=== PATIENT | male | born 1965 | race African-American/Black ===

== ENCOUNTER 2016-11-21 13:26 | Inpatient (IN) | payer OTHER ==
[~2016-11-21] VITALS: Ht 193 cm; Wt 108.9 kg
[~2016-11-21 13:26] MED LIST: HYDR25TA4 PO; LISI-603 PO; QUET25TA PO
[2016-11-21] MEDS ORDERED: CEFTRIAXONE 1 G in IV D5W 50 ML IV ONE (14:00)
[2016-11-21] MEDS ORDERED: VANCOMYCIN 1 GM in IV D5W 250 ML IV SCH (14:00)
[2016-11-21] MEDS ORDERED: MORPHINE SULFATE INJ 2 MG/ML DISP.SYRIN IV ONE (14:00)
[2016-11-21] MEDS ORDERED: ONDANSETRON HCL/PF 4 MG/2 ML VIAL IV ONE (14:00)
[2016-11-21] MEDS ORDERED: MORPHINE SULFATE INJ 4 MG/ML DISP.SYRIN ONE (14:06)
[2016-11-21] MEDS ORDERED: IV SET PRIMARY PUMP SET 1 EA INFUS.SET MC ONE ×2 (14:06→17:56)
[2016-11-21] MEDS ORDERED: CEFTRIAXONE 1GM BAG (ER ONLY) 50 ML IV ONE (14:06)
[2016-11-21] MEDS ORDERED: ONDANSETRON HCL/PF 4 MG/2 ML VIAL ONE (14:06)
[2016-11-21 14:16] LABS: BASOPHILS % (AUTO) 0.1 % (0.0-2.0); DIFF TOTAL % 100 %; EOSINOPHILS % (AUTO) 0.3 % (0.0-6.0); HEMATOCRIT 45 % (39-51); HEMOGLOBIN 14.7 g/dL (13.5-17.5); LYMPHOCYTES # (AUTO) 1.1 /CMM (0.8-4.8); LYMPHOCYTES % (AUTO) 10.2 % (20.0-44.0); MEAN CORPUSCULAR HEMOGLOBIN 27 PG (26.0-33.0); MEAN CORPUSCULAR HGB CONC 33 g/dl (31.0-36.0); MEAN CORPUSCULAR VOLUME 81 fL (80-96); MONOCYTES # (AUTO) 1.2 /CMM (0.1-1.30); MONOCYTES % (AUTO) 10.8 % (2.0-12.0); NEUTROPHILS # (AUTO) 8.5 /CMM (1.8-8.9); NEUTROPHILS % (AUTO) 78.6 % (43.0-81.0); PLATELET COUNT (AUTO) 215 /CMM (150-450); RED BLOOD CELL COUNT(AUTO) 5.56 MIL/uL (4.5-6.0); WHITE BLOOD COUNT (AUTO) 10.8 K/uL (4.3-11.0)
[2016-11-21 14:24] LABS: CALCIUM, SERUM 8.5 mg/dL (8.5-10.1); CREATININE 1.2 mg/dL (0.6-1.3)
[2016-11-21 14:33] LABS: LACTIC ACID 1.6 mmol/L (0.4-2.0)
[2016-11-21] MEDS ORDERED: IOHEXOL-300 100 ML VIAL IV ONE (14:44)
[2016-11-21 14:52] LABS: ALBUMIN 2.7 g/dL (3.4-5.0); BILIRUBIN,DIRECT 0.7 mg/dL (0.0-0.2); BILIRUBIN,TOTAL 1.6 mg/dL (0.2-1.0); INDIRECT BILIRUBIN 0.9 mg/dL (0.0-1.1); TOTAL PROTEIN, SERUM 7.4 g/dL (6.4-8.2)
[2016-11-21] MEDS ORDERED: IV NS 0.9% 1,000 ML ONE (15:00)
[2016-11-21] MEDS ORDERED: IV NS 0.9% 1,000 ML BAG IV ONE (15:00)
[2016-11-21] MEDS ORDERED: IV NS 0.9% 1,000 ML IV PRN (16:08)
[2016-11-21] MEDS ORDERED: ZOLPIDEM TARTRATE 5 MG TABLET PO PRN (16:30)
[2016-11-21] MEDS ORDERED: MAGNESIUM HYDROXIDE 30 ML UDC PO PRN (16:30)
[2016-11-21] MEDS ORDERED: MAG HYDROX/AL HYDROX/SIMETH 30 ML UDC PO PRN (16:30)
[2016-11-21] MEDS ORDERED: ONDANSETRON HCL/PF 4 MG/2 ML VIAL IVP PRN (16:30)
[2016-11-21] MEDS ORDERED: ACETAMINOPHEN 325 MG TABLET PO PRN (16:30)
[2016-11-21] MEDS ORDERED: Z GUARD REMEDY 2 OZ OINT TP PRN (16:30)
[2016-11-21 17:30] VITALS: BP 168/100
[2016-11-21] MEDS: MORPHINE SULFATE INJ 2 MG/ML DISP.SYRIN IV PRN (18:00)
[2016-11-21] MEDS: ENOXAPARIN SODIUM 40 MG/0.4 ML DISP.SYRIN SQ SCH (18:11)
[2016-11-21 20:00] VITALS: BP 145/95
[2016-11-21] MEDS ORDERED: SECONDARY IV SET 1 EA INFUS.SET MC ONE (20:11)
[2016-11-21] MEDS: CEFAZOLIN 1 GM in IV NS 0.9% 50 ML IV SCH (20:16)
[2016-11-21] MEDS: POTASSIUM CHLORIDE 20 MEQ TAB.PRT.SR PO SCH ×3 (20:16→22:42)
[2016-11-22 00:55] VITALS: BP 116/89
[2016-11-22 02:00] VITALS: BP 122/78
[2016-11-22] MEDS: HYDROCODONE/APAP 5/325MG 1 EACH TABLET PO PRN ×2 (03:06→13:07)
[2016-11-22] MEDS: CEFAZOLIN 1 GM in IV NS 0.9% 50 ML IV SCH ×3 (04:12→22:08)
[2016-11-22 06:55] LABS: BASOPHILS % (AUTO) 0.2 % (0.0-2.0); DIFF TOTAL % 100 %; EOSINOPHILS # (AUTO) 0.1 /CMM (0.0-0.7); EOSINOPHILS % (AUTO) 0.6 % (0.0-6.0); HEMATOCRIT 42 % (39-51); HEMOGLOBIN 13.3 g/dL (13.5-17.5); LYMPHOCYTES # (AUTO) 1.5 /CMM (0.8-4.8); LYMPHOCYTES % (AUTO) 14.3 % (20.0-44.0); MEAN CORPUSCULAR HEMOGLOBIN 26 PG (26.0-33.0); MEAN CORPUSCULAR HGB CONC 32 g/dl (31.0-36.0); MEAN CORPUSCULAR VOLUME 82 fL (80-96); MONOCYTES # (AUTO) 1.4 /CMM (0.1-1.30); NEUTROPHILS # (AUTO) 7.2 /CMM (1.8-8.9); NEUTROPHILS % (AUTO) 70.9 % (43.0-81.0); PLATELET COUNT (AUTO) 212 /CMM (150-450); RED BLOOD CELL COUNT(AUTO) 5.05 MIL/uL (4.5-6.0); WHITE BLOOD COUNT (AUTO) 10.2 K/uL (4.3-11.0)
[2016-11-22 07:08] LABS: CALCIUM, SERUM 8.2 mg/dL (8.5-10.1); CREATININE 1.1 mg/dL (0.6-1.3); PHOSPHORUS 2.5 mg/dL (2.5-4.9); POTASSIUM 3.9 mmol/L (3.5-5.1)
[2016-11-22] MEDS ORDERED: IV SET PRIMARY PUMP SET 1 EA INFUS.SET MC ONE (07:27)
[2016-11-22 08:00] VITALS: BP 127/77
[2016-11-22] MEDS: PANTOPRAZOLE 40 MG TABLET.DR PO SCH (08:36)
[2016-11-22] MEDS: MORPHINE SULFATE INJ 2 MG/ML DISP.SYRIN IV PRN ×3 (08:37→22:08)
[2016-11-22] MEDS: LISINOPRIL (20MG) 20 MG TABLET PO SCH (08:38)
[2016-11-22 16:45] VITALS: BP 134/86
[2016-11-22] MEDS: ENOXAPARIN SODIUM 40 MG/0.4 ML DISP.SYRIN SQ SCH (17:30)
[2016-11-22] MEDS ORDERED: IV NS 0.9% 250 ML IV ONE (22:24)
[2016-11-23] MEDS: MORPHINE SULFATE INJ 2 MG/ML DISP.SYRIN IV PRN ×2 (03:41→07:44)
[2016-11-23] MEDS: CEFAZOLIN 1 GM in IV NS 0.9% 50 ML IV SCH (04:59)
[2016-11-23] MEDS: PANTOPRAZOLE 40 MG TABLET.DR PO SCH (07:44)
[2016-11-23] MEDS: LISINOPRIL (20MG) 20 MG TABLET PO SCH (07:45)
[2016-11-23 08:00] VITALS: BP 146/91
[2016-11-24] MEDS ORDERED: CARI350T PO (08:27)
[2016-11-24] MEDS ORDERED: HYDR-548 PO (08:27)
== END 2016-11-23 13:30 | disposition left against medical advice (07) | DRG 720 ==
LOC: ER 13:28 → MEDSG2 16:29
PROVIDERS: ADMIT Internal Medicine; ATTEND Internal Medicine
DX: A41.9 Sepsis, unspecified organism (principal); I10 Essential (primary) hypertension; L02.414 Cutaneous abscess of left upper limb; L03.114 Cellulitis of left upper limb; T63.301A Toxic effect of unspecified spider venom, accidental (unintentional), initial encounter; Y92.9 Unspecified place or not applicable
CPT/HCPCS: 36415; 73201-TC; 80048-TC; 80076-TC; 83605-TC; 83735-TC; 84100-TC; 85025-TC; 87040-TC; 87081-TC; A4216; A4217; A4606; A6253; A6402; A6403; J0690; J0696; J1650; J2270; J2405; J3370; J7030; J7050; J7060; Q9967; Z7610

== ENCOUNTER 2016-11-23 20:21 | Emergency (ER) | payer OTHER ==
[~2016-11-23 20:21] MED LIST changes: -HYDR25TA4 PO; -QUET25TA PO
[2016-11-24] MEDS ORDERED: HYDR-548 PO (08:27)
[2016-11-24] MEDS ORDERED: CARI350T PO (08:27)
== END 2016-11-23 21:12 | disposition left against medical advice (07) ==
LOC: ER 20:21
DX: Z53.21 Procedure and treatment not carried out due to patient leaving prior to being seen by health care provider (principal)

== ENCOUNTER 2016-11-23 21:56 | Emergency (ER) | payer OTHER ==
[~2016-11-23] VITALS: Ht 193 cm; Wt 108.9 kg
[2016-11-23 22:17] VITALS: BP 147/92
[2016-11-24] MEDS ORDERED: HYDR-548 PO (08:27)
[2016-11-24] MEDS ORDERED: CARI350T PO (08:27)
== END 2016-11-24 00:22 | disposition left against medical advice (07) ==
LOC: ER 21:56
DX: Z53.21 Procedure and treatment not carried out due to patient leaving prior to being seen by health care provider (principal)
CPT/HCPCS: A4606; Z7610

== ENCOUNTER 2016-11-24 06:55 | Inpatient (IN) | payer OTHER ==
[~2016-11-24] VITALS: Ht 193 cm; Wt 108.9 kg
[2016-11-24] MEDS ORDERED: IV NS 0.9% 500 ML IV ONE (07:25)
[2016-11-24] MEDS ORDERED: IV NS 0.9% 3,000 ML ONE (07:26)
[2016-11-24] MEDS ORDERED: IV SET PRIMARY PUMP SET 1 EA INFUS.SET MC ONE ×4 (07:26→20:55)
[2016-11-24] MEDS ORDERED: CEFAZOLIN 1 GM in IV D5W 50 ML IV ONE (07:30)
[2016-11-24] MEDS ORDERED: VANCOMYCIN 1 GM in IV D5W 250 ML IV ONE (07:30)
[2016-11-24] MEDS ORDERED: IV NS 0.9% 1,000 ML BAG IV ONE (07:30)
[2016-11-24 07:57] LABS: ANION GAP 10 (5-14); BASOPHILS % (AUTO) 0.4 % (0.0-2.0); CALCIUM, SERUM 8.9 mg/dL (8.5-10.1); CARBON DIOXIDE 29 mmol/L (21-32); CHLORIDE 104 mmol/L (98-107); CREATININE 1.1 mg/dL (0.6-1.3); DIFF TOTAL % 100 %; EOSINOPHILS # (AUTO) 0.2 /CMM (0.0-0.7); EOSINOPHILS % (AUTO) 4.3 % (0.0-6.0); GFR 86 mL/min (>60); GLUCOSE 89 mg/dL (74-106); HEMATOCRIT 39 % (39-51); HEMOGLOBIN 12.7 g/dL (13.5-17.5); LYMPHOCYTES # (AUTO) 1.3 /CMM (0.8-4.8); LYMPHOCYTES % (AUTO) 31.3 % (20.0-44.0); MEAN CORPUSCULAR HEMOGLOBIN 26 PG (26.0-33.0); MEAN CORPUSCULAR HGB CONC 32 g/dl (31.0-36.0); MEAN CORPUSCULAR VOLUME 82 fL (80-96); MONOCYTES % (AUTO) 23.3 % (2.0-12.0); NEUTROPHILS # (AUTO) 1.7 /CMM (1.8-8.9); NEUTROPHILS % (AUTO) 40.7 % (43.0-81.0); PLATELET COUNT (AUTO) 346 /CMM (150-450); POTASSIUM 3.8 mmol/L (3.5-5.1); RED BLOOD CELL COUNT(AUTO) 4.83 MIL/uL (4.5-6.0); SODIUM SERUM 140 mmol/L (136-145); UREA NITROGEN, BLOOD 11 mg/dL (7-18); WHITE BLOOD COUNT (AUTO) 4.2 K/uL (4.3-11.0)
[2016-11-24 08:06] LABS: TROPONIN I < 0.017 ng/mL (0.00-0.056)
[2016-11-24 08:07] LABS: LACTIC ACID 0.9 mmol/L (0.4-2.0)
[2016-11-24 08:10] LABS: INR 0.99 (0.87-1.13); PROTHROMBIN TIME 10.7 SECS (9.5-12.7)
[2016-11-24] MEDS ORDERED: HYDR-548 PO (08:27)
[2016-11-24] MEDS ORDERED: CARI350T PO (08:27)
[2016-11-24] MEDS ORDERED: IV NS 0.9% 1,000 ML IV PRN (08:48)
[2016-11-24] MEDS ORDERED: MAGNESIUM HYDROXIDE 30 ML UDC PO PRN (09:00)
[2016-11-24] MEDS ORDERED: ZOLPIDEM TARTRATE 5 MG TABLET PO PRN (09:00)
[2016-11-24] MEDS ORDERED: MAG HYDROX/AL HYDROX/SIMETH 30 ML UDC PO PRN (09:00)
[2016-11-24] MEDS ORDERED: ACETAMINOPHEN 325 MG TABLET PO PRN (09:00)
[2016-11-24] MEDS ORDERED: ONDANSETRON HCL/PF 4 MG/2 ML VIAL IVP PRN (09:00)
[2016-11-24] MEDS ORDERED: Z GUARD REMEDY 2 OZ OINT TP PRN (09:00)
[2016-11-24 10:27] LABS: EOSINOPHILS % (MANUAL) 4 % (0-4); LYMPHOCYTES % (MANUAL) 28 % (16-48)
[2016-11-24 10:28] LABS: HYPOCHROMASIA 1+; PLATELET ESTIMATE ADEQUATE
[2016-11-24 12:00] VITALS: BP 156/99
[2016-11-24] MEDS: CARISOPRODOL 350 MG TABLET PO SCH (12:53)
[2016-11-24] MEDS ORDERED: FEE PK DOSING 1 MIN EA MC ONE (14:30)
[2016-11-24 16:00] VITALS: BP 148/95
[2016-11-24 20:00] VITALS: BP 144/101
[2016-11-24] MEDS ORDERED: IV SET PRIMARY 1 EA INFUS.SET MC ONE (20:54)
[2016-11-24] MEDS: VANCOMYCIN 1.5 GM in IV D5W 500 ML IV SCH (21:14)
[2016-11-24] MEDS: HYDROCODONE/APAP 5/325MG 1 EACH TABLET PO PRN (21:20)
[2016-11-24] MEDS: LISINOPRIL (20MG) 20 MG TABLET PO SCH (21:23)
[2016-11-25] MEDS ORDERED: PANTOPRAZOLE 40 MG TABLET.DR PO SCH (07:30)
[2016-11-25 08:00] VITALS: BP 160/106
[2016-11-25 08:16] LABS: BASOPHILS % (AUTO) 0.6 % (0.0-2.0); DIFF TOTAL % 100 %; EOSINOPHILS # (AUTO) 0.2 /CMM (0.0-0.7); EOSINOPHILS % (AUTO) 5.2 % (0.0-6.0); HEMATOCRIT 39 % (39-51); HEMOGLOBIN 12.9 g/dL (13.5-17.5); LYMPHOCYTES # (AUTO) 1.2 /CMM (0.8-4.8); LYMPHOCYTES % (AUTO) 32.3 % (20.0-44.0); MEAN CORPUSCULAR HEMOGLOBIN 27 PG (26.0-33.0); MEAN CORPUSCULAR HGB CONC 33 g/dl (31.0-36.0); MEAN CORPUSCULAR VOLUME 81 fL (80-96); MONOCYTES # (AUTO) 0.8 /CMM (0.1-1.30); MONOCYTES % (AUTO) 20.8 % (2.0-12.0); NEUTROPHILS # (AUTO) 1.6 /CMM (1.8-8.9); NEUTROPHILS % (AUTO) 41.1 % (43.0-81.0); PLATELET COUNT (AUTO) 356 /CMM (150-450); RED BLOOD CELL COUNT(AUTO) 4.85 MIL/uL (4.5-6.0); WHITE BLOOD COUNT (AUTO) 3.8 K/uL (4.3-11.0)
[2016-11-25 08:21] VITALS: BP 160/101
[2016-11-25] MEDS: CARISOPRODOL 350 MG TABLET PO SCH (08:21)
[2016-11-25] MEDS: HYDROCODONE/APAP 5/325MG 1 EACH TABLET PO PRN (08:21)
[2016-11-25] MEDS: LISINOPRIL (20MG) 20 MG TABLET PO SCH (08:21)
[2016-11-25] MEDS ORDERED: SECONDARY IV SET 1 EA INFUS.SET MC ONE (08:44)
[2016-11-25] MEDS: VANCOMYCIN 1.5 GM in IV D5W 500 ML IV SCH (08:49)
[2016-11-25 10:06] LABS: BAND % (MANUAL) 3 % (0.0-5.0); EOSINOPHILS % (MANUAL) 4 % (0-4); LYMPHOCYTES % (MANUAL) 25 % (16-48)
[2016-11-25 10:08] LABS: HYPOCHROMASIA 1+; PLATELET ESTIMATE ADEQUATE
[2016-11-25 10:32] LABS: CALCIUM, SERUM 8.8 mg/dL (8.5-10.1); POTASSIUM 4.4 mmol/L (3.5-5.1)
[2016-11-25 10:33] LABS: ALBUMIN 2.3 g/dL (3.4-5.0); BILIRUBIN,TOTAL 0.2 mg/dL (0.2-1.0); PHOSPHORUS 4.1 mg/dL (2.5-4.9); TOTAL PROTEIN, SERUM 6.4 g/dL (6.4-8.2)
== END 2016-11-25 12:30 | disposition home or self-care (01) | DRG 720 ==
LOC: ER 06:55 → MED 11:41
PROVIDERS: ADMIT Internal Medicine; ATTEND Internal Medicine
DX: A41.9 Sepsis, unspecified organism (principal); I10 Essential (primary) hypertension; L03.114 Cellulitis of left upper limb; L02.414 Cutaneous abscess of left upper limb
CPT/HCPCS: 36415; 80048-TC; 80053-TC; 80061-TC; 80202-TC; 83605-TC; 83735-TC; 84100-TC; 84484-TC; 85025-TC; 85730-TC; 87040-TC; 87081-TC; A4606; A6402; J0690; J3370; J7030; J7040; J7060; Z7610

== ENCOUNTER 2016-12-08 03:01 | Emergency (ER) | payer OTHER ==
[~2016-12-08] VITALS: Ht 175.3 cm; Wt 90.3 kg
[~2016-12-08 03:01] MED LIST changes: +CARI350T PO; +HYDR-548 PO
[2016-12-08] MEDS ORDERED: NITROGLYCERIN PACKET 1 GM PACKET TD ONE (03:30)
[2016-12-08] MEDS ORDERED: ASPIRIN 81 MG TAB.CHEW PO ONE (03:30)
[2016-12-08] MEDS ORDERED: LABETALOL HCL IV 100MG VIAL IV ONE (03:30)
[2016-12-08] MEDS ORDERED: NITROGLYCERIN 0.4 MG/TAB BOTTLE SL ONE (03:30)
[2016-12-08 03:47] LABS: BASOPHILS % (AUTO) 1.4 % (0.0-2.0); DIFF TOTAL % 100 %; EOSINOPHILS # (AUTO) 0.1 /CMM (0.0-0.7); EOSINOPHILS % (AUTO) 5.1 % (0.0-6.0); HEMATOCRIT 44 % (39-51); HEMOGLOBIN 14.1 g/dL (13.5-17.5); LYMPHOCYTES # (AUTO) 1.1 /CMM (0.8-4.8); MEAN CORPUSCULAR HEMOGLOBIN 26 PG (26.0-33.0); MEAN CORPUSCULAR HGB CONC 32 g/dl (31.0-36.0); MEAN CORPUSCULAR VOLUME 81 fL (80-96); MONOCYTES # (AUTO) 0.3 /CMM (0.1-1.30); MONOCYTES % (AUTO) 12.2 % (2.0-12.0); NEUTROPHILS # (AUTO) 1.2 /CMM (1.8-8.9); NEUTROPHILS % (AUTO) 42.3 % (43.0-81.0); PLATELET COUNT (AUTO) 292 /CMM (150-450); RED BLOOD CELL COUNT(AUTO) 5.42 MIL/uL (4.5-6.0); WHITE BLOOD COUNT (AUTO) 2.8 K/uL (4.3-11.0)
[2016-12-08 03:59] LABS: ANION GAP 5 (5-14); CALCIUM, SERUM 8.4 mg/dL (8.5-10.1); CARBON DIOXIDE 22 mmol/L (21-32); CHLORIDE 107 mmol/L (98-107); CREATININE 1.3 mg/dL (0.6-1.3); GFR 71 mL/min (>60); GLUCOSE 90 mg/dL (74-106); POTASSIUM 3.2 mmol/L (3.5-5.1); SODIUM SERUM 131 mmol/L (136-145); UREA NITROGEN, BLOOD 12 mg/dL (7-18)
[2016-12-08 04:05] LABS: TROPONIN I < 0.017 ng/mL (0.00-0.056)
[2016-12-08] MEDS ORDERED: LABETALOL HCL IV 100MG VIAL ONE (04:09)
[2016-12-08] MEDS ORDERED: NITROGLYCERIN PACKET 1 GM PACKET ONE (04:09)
[2016-12-08] MEDS ORDERED: ASPIRIN 81 MG TAB.CHEW ONE (04:09)
[2016-12-08] MEDS ORDERED: NITROGLYCERIN 0.4 MG/TAB BOTTLE ONE (04:09)
[2016-12-08 04:11] LABS: ALANINE AMINOTRANSFERASE 161 U/L (12-78); ALBUMIN 3.3 g/dL (3.4-5.0); ASPARTATE AMINOTRANSFERASE 155 U/L (15-37); BILIRUBIN,DIRECT 0.2 mg/dL (0.0-0.2); BILIRUBIN,TOTAL 0.4 mg/dL (0.2-1.0); INDIRECT BILIRUBIN 0.2 mg/dL (0.0-1.1); TOTAL PROTEIN, SERUM 7.5 g/dL (6.4-8.2)
[2016-12-08] MEDS ORDERED: HYDROMORPHONE 1 MG/1 ML DISP.SYRIN ONE (04:56)
[2016-12-08] MEDS ORDERED: ONDANSETRON HCL/PF 4 MG/2 ML VIAL ONE (04:56)
[2016-12-08] MEDS ORDERED: POTASSIUM CHLORIDE 20 MEQ TAB.PRT.SR PO ONE ×2 (04:56→05:00)
[2016-12-08] MEDS ORDERED: HYDROMORPHONE 1 MG/1 ML DISP.SYRIN IV ONE (05:00)
[2016-12-08] MEDS ORDERED: ONDANSETRON HCL/PF - ER 4 MG/2 ML VIAL IV ONE (05:00)
[2016-12-08] MEDS ORDERED: IV NS 0.9% 250 ML IV ONE (05:02)
[2016-12-08] MEDS ORDERED: IOHEXOL-350 100 ML VIAL IV ONE (05:03)
[2016-12-08 05:28] LABS: BAND % (MANUAL) 1 % (0.0-5.0); BASOPHILS % (MANUAL) 0 % (0.0-2.0); EOSINOPHILS % (MANUAL) 4 % (0-4); LYMPHOCYTES % (MANUAL) 49 % (16-48); PLATELET ESTIMATE ADEQUATE; RBC MORPHOLOGY COMMENT NORMAL RBC MORPH
[2016-12-08 07:41] VITALS: BP 132/75
== END 2016-12-08 07:42 ==
LOC: ER 03:03
DX: R07.9 Chest pain, unspecified (principal); R06.00 Dyspnea, unspecified; R91.8 Other nonspecific abnormal finding of lung field; I10 Essential (primary) hypertension
CPT/HCPCS: 36415; 71010; 71275; 80048; 80076; 83880; 84484 ×2; 85025; 85378; 93005; 96374; 96375; 99285; A4606; J1170; J2405; J3490; J7050; Q9967; Z7610

== ENCOUNTER 2017-03-11 12:31 | Emergency (ER) | payer OTHER ==
[~2017-03-11] VITALS: Ht 193 cm; Wt 108.9 kg
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
--- NOTE | 2017-03-11 14:32 | NUR ---
RESTING IN BED, NAD NOTED. PROVIDED WITH URINAL.
--- NOTE | 2017-03-11 14:58 | NUR ---
PT TRANSPORTED TO CT IN STABLE CONDITION
--- NOTE | 2017-03-11 16:10 | NUR ---
Patient discharged to home in stable condition. Written and verbal after care instructions given. Patient verbalizes understanding of instruction. AMBULATORY WITH STEADY GAIT. Addendum: 03/11/17 at 1610 by HFOX CORRECTION: DISCHARGED TO [employer]
[2017-03-11 16:11] VITALS: BP 151/68
== END 2017-03-11 16:13 ==
LOC: ER 12:33
DX: R51 Headache (principal); F19.10 Other psychoactive substance abuse, uncomplicated; D17.9 Benign lipomatous neoplasm, unspecified; I10 Essential (primary) hypertension; Z86.73 Personal history of transient ischemic attack (TIA), and cerebral infarction without residual deficits
CPT/HCPCS: 70450-TC; A4606; Z7610

== ENCOUNTER 2017-12-14 06:04 | Emergency (ER) | payer OTHER ==
[~2017-12-14] VITALS: Ht 188 cm; Wt 108.9 kg
--- NOTE | 2017-12-14 06:12 | NUR ---
BBRA 60/[employer]; [employer] NEEDS OKAY TO BOOK, DENIES ANY PAIN, N/V/SOB. PT REFUSED TO ANSWER QUESTIONS AT THIS TIME. RR EVEN AND UNLABORED. NO SOB NOTED. NAD NOTED. NO NVD AT THIS TIEM. PT GOWNED AND PLACED ON MONITOR WAITING FOR MD RODGERS.
--- NOTE | 2017-12-14 06:20 | NUR ---
DR. CIFUENTES AT BEDSIDE FOR EVAL.
--- NOTE | 2017-12-14 06:29 | NUR ---
CALLED LAB FOR BLOOD DRAW
[2017-12-14] MEDS ORDERED: ASPIRIN 325 MG TABLET PO ONE (06:30)
[2017-12-14] MEDS ORDERED: ASPIRIN 325 MG TABLET ONE (06:32)
--- NOTE | 2017-12-14 06:42 | NUR ---
LAB AT BEDSIDE FOR BLOOD DRAW
[2017-12-14 07:09] LABS: BASOPHILS # (AUTO) 0.1 /CMM (0.0-0.2); BASOPHILS % (AUTO) 1.4 % (0.0-2.0); EOSINOPHILS # (AUTO) 0.1 /CMM (0.0-0.7); EOSINOPHILS % (AUTO) 2.9 % (0.0-6.0); HEMATOCRIT 47 % (39-51); HEMOGLOBIN 15.6 g/dL (13.5-17.5); LYMPHOCYTES # (AUTO) 2.2 /CMM (0.8-4.8); LYMPHOCYTES % (AUTO) 57.6 % (20.0-44.0); MEAN CORPUSCULAR HEMOGLOBIN 28 PG (26.0-33.0); MEAN CORPUSCULAR HGB CONC 33 g/dl (31.0-36.0); MEAN CORPUSCULAR VOLUME 83 fL (80-96); MONOCYTES # (AUTO) 0.4 /CMM (0.1-1.30); MONOCYTES % (AUTO) 11.1 % (2.0-12.0); PLATELET COUNT (AUTO) 276 /CMM (150-450); RDW COEFFICIENT OF VARIATION 13.9 (11.5-15.0); RED BLOOD CELL COUNT(AUTO) 5.66 MIL/uL (4.5-6.0); WHITE BLOOD COUNT (AUTO) 3.9 K/uL (4.3-11.0)
[2017-12-14 07:14] LABS: CALCIUM, SERUM 8.5 mg/dL (8.5-10.1); POTASSIUM 3.9 mmol/L (3.5-5.1)
[2017-12-14 07:19] LABS: ALBUMIN 3.1 g/dL (3.4-5.0); BILIRUBIN,TOTAL 0.3 mg/dL (0.2-1.0); TOTAL PROTEIN, SERUM 7.7 g/dL (6.4-8.2)
--- NOTE | 2017-12-14 07:19 | NUR ---
REPORT GIVEN TO MARLIN SAGE FOR SNUNY.
[2017-12-14 07:20] LABS: SALICYLATE 1.4 mg/dL (2.8-20.0)
--- NOTE | 2017-12-14 07:20 | NUR ---
RECEIVED REPORT FOR SUNNY.
--- NOTE | 2017-12-14 08:05 | NUR ---
CALLED LAB FOR TROPONIN BLOOD DRAW
[2017-12-14 08:51] VITALS: BP 159/85
== END 2017-12-14 08:56 ==
LOC: ER 06:05
DX: S00.03XA Contusion of scalp, initial encounter (principal); S20.212A Contusion of left front wall of thorax, initial encounter; R41.0 Disorientation, unspecified; F10.129 Alcohol abuse with intoxication, unspecified; R07.89 Other chest pain; X58.XXXA Exposure to other specified factors, initial encounter; Y93.89 Activity, other specified; Y92.89 Other specified places as the place of occurrence of the external cause; Y99.8 Other external cause status
CPT/HCPCS: 36415; 71045-TC; 80053-TC; 83690-TC; 84484-TC; 85025-TC; A4606; G0480; Z7610

== ENCOUNTER 2022-11-26 12:27 | Emergency (ER) | payer OTHER ==
[~2022-11-26] VITALS: Ht 193 cm; Wt 108.9 kg
[~2022-11-26 12:27] MED LIST changes: +HYDR-4354 PO; -HYDR-548 PO; -LISI-603 PO; +LISI20TA30 PO
--- NOTE | 2022-11-26 12:30 | NUR ---
BIBS W/ C/O L LEG PAIN x 3-4 DAYS, DENIES TRAUMA, STATES "WOKE UP WITH PAIN ON MY LEG". TO ER BED 10.
--- NOTE | 2022-11-26 12:47 | NUR ---
DR TODD AT BEDSIDE FOR EVAL
[2022-11-26] MEDS ORDERED: KETOROLAC TROMETHAMINE INJ 30 MG/ML VIAL ONE ×2 (12:52→14:23)
[2022-11-26] MEDS ORDERED: KETOROLAC TROMETHAMINE INJ 30 MG/ML VIAL IM ONE ×2 (13:00→14:30)
--- NOTE | 2022-11-26 14:04 | NUR ---
audiovisual aids technician at bedside
[2022-11-26] MEDS ORDERED: KETO10TA2 PO (14:17)
[2022-11-26] MEDS ORDERED: CYCL5TAB PO (14:17)
[2022-11-26] MEDS ORDERED: TRAM-351 PO (14:17)
[2022-11-26] MEDS ORDERED: TRAMADOL HCL 50 MG TABLET ONE (14:23)
[2022-11-26] MEDS ORDERED: CYCLOBENZAPRINE 10 MG TABLET ONE (14:24)
[2022-11-26 14:30] VITALS: BP 115/76
[2022-11-26] MEDS ORDERED: CYCLOBENZAPRINE 10 MG TABLET PO ONE (14:30)
[2022-11-26] MEDS ORDERED: TRAMADOL HCL 50 MG TABLET PO ONE (14:30)
== END 2022-11-26 14:31 | disposition home or self-care (01) ==
LOC: ER 12:30
DX: M79.605 Pain in left leg (principal); I10 Essential (primary) hypertension; Z60.2 Problems related to living alone; Z79.899 Other long term (current) drug therapy
CPT/HCPCS: 99285; 93971; 96372; J1885

== ENCOUNTER 2022-12-16 07:09 | Emergency (ER) | payer OTHER ==
[~2022-12-16] VITALS: Ht 193 cm; Wt 108.9 kg
[~2022-12-16 07:09] MED LIST changes: +CYCL5TAB PO; +KETO10TA2 PO; +TRAM-351 PO
--- NOTE | 2022-12-16 07:35 | NUR ---
PT AWAKE AND ALERT NO DIFFORMITY AMBLATE
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
[2022-12-16] MEDS ORDERED: ACETAMINOPHEN 325 MG TABLET ONE (08:14)
--- NOTE | 2022-12-16 08:16 | NUR ---
TO CT SCAN
[2022-12-16] MEDS ORDERED: ACETAMINOPHEN 325 MG TABLET PO ONE (08:30)
[2022-12-16] MEDS ORDERED: CYCL5TAB PO (09:11)
[2022-12-16] MEDS ORDERED: IBUP-1955 PO (09:11)
--- NOTE | 2022-12-16 09:17 | NUR ---
Patient discharged to home in stable condition. Written and verbal after care instructions given. Patient verbalizes understanding of instruction. pt refused rayshawn bandage and cervicle collr
[2022-12-16 09:28] VITALS: BP 139/100
== END 2022-12-16 09:29 | disposition home or self-care (01) ==
LOC: ER 07:14
DX: S16.1XXA Strain of muscle, fascia and tendon at neck level, initial encounter (principal); S83.92XA Sprain of unspecified site of left knee, initial encounter; I10 Essential (primary) hypertension; Z60.2 Problems related to living alone; Z79.899 Other long term (current) drug therapy; V43.62XA Car passenger injured in collision with other type car in traffic accident, initial encounter; Y93.89 Activity, other specified; Y92.89 Other specified places as the place of occurrence of the external cause; Y99.8 Other external cause status
CPT/HCPCS: 70450-TC; 72125-TC; 73564-TC

== ENCOUNTER 2023-04-02 08:25 | Emergency (ER) | payer OTHER ==
[~2023-04-02] VITALS: Ht 193 cm; Wt 108.9 kg
[~2023-04-02 08:25] MED LIST changes: +IBUP-1955 PO
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
--- NOTE | 2023-04-02 08:45 | NUR ---
INSERTED angocatheter G 18 on rt wrist blood drow and sent to lab blood cuture x 2 blood drow
--- NOTE | 2023-04-02 09:13 | NUR ---
X RAY DONE AT BED SIDE
[2023-04-02 09:14] LABS: BASOPHILS % (AUTO) 0.5 % (0.0-2.0); EOSINOPHILS % (AUTO) 2.1 % (0.0-6.0); HEMATOCRIT 34 % (39-51); HEMOGLOBIN 11.1 g/dL (13.5-17.5); LYMPHOCYTES # (AUTO) 1.6 K/uL (0.8-4.8); LYMPHOCYTES % (AUTO) 18.7 % (20.0-44.0); MEAN CORPUSCULAR HGB CONC 32 g/dl (31.0-36.0); MEAN CORPUSCULAR VOLUME 82 fL (80-96); MONOCYTES % (AUTO) 12.2 % (2.0-12.0); NEUTROPHILS # (AUTO) 5.6 K/uL (1.8-8.9); NEUTROPHILS % (AUTO) 66.5 % (43.0-81.0); PLATELET COUNT (AUTO) 371 K/uL (150-450); RED BLOOD CELL COUNT(AUTO) 4.18 MIL/uL (4.5-6.0); WHITE BLOOD COUNT (AUTO) 8.3 K/uL (4.3-11.0)
[2023-04-02 09:45] LABS: CALCIUM, SERUM 9.4 mg/dL (8.5-10.1); CREATININE 1.1 mg/dL (0.6-1.3); POTASSIUM 3.7 mmol/L (3.5-5.1)
--- NOTE | 2023-04-02 09:46 | NUR ---
US ON RT LEG AT BED SIDE
[2023-04-02 09:51] LABS: ALBUMIN 2.9 g/dL (3.4-5.0); BILIRUBIN,DIRECT 0.3 mg/dL (0.0-0.2); BILIRUBIN,TOTAL 1.2 mg/dL (0.2-1.0); TOTAL PROTEIN, SERUM 7.3 g/dL (6.4-8.2)
--- NOTE | 2023-04-02 10:30 | NUR ---
NO PAIN NOTED
--- NOTE | 2023-04-02 10:50 | NUR ---
IV removed. Catheter intact and site benign. Pressure and 4x4 applied to site. No bleeding noted.
--- NOTE | 2023-04-02 10:51 | NUR ---
Patient does not wish to proceed with medical care recommended by ([email or web address] ). Patient given information related to possible complications, up to and including , which could occur as a result of leaving the hospital at this time. Patient verbalizes understanding of risks involved due to leaving against medical advice. Patient has signed AMA form.
[2023-04-02 11:02] VITALS: BP 127/101
== END 2023-04-02 11:04 | disposition left against medical advice (07) ==
LOC: ER 08:33
DX: Z96.652 Presence of left artificial knee joint (principal); I10 Essential (primary) hypertension; Z60.2 Problems related to living alone; Z79.899 Other long term (current) drug therapy
CPT/HCPCS: 36415; 73564-TC; 80048-TC; 80076-TC; 83605-TC; 85025-TC; 85730-TC; 87040-TC; 93971-TC

== ENCOUNTER 2024-04-26 09:35 | Emergency (ER) | payer OTHER ==
[~2024-04-26] VITALS: Ht 185.4 cm; Wt 117.9 kg
[2024-04-26 10:26] VITALS: BP 141/89; TEMP 98.4; O2SAT 98
== END 2024-04-26 10:31 | disposition left against medical advice (07) ==
LOC: ER 09:46
DX: S09.8XXA Other specified injuries of head, initial encounter (principal); R11.2 Nausea with vomiting, unspecified; I10 Essential (primary) hypertension; F10.10 Alcohol abuse, uncomplicated; Z60.2 Problems related to living alone; W01.0XXA Fall on same level from slipping, tripping and stumbling without subsequent striking against object, initial encounter; Y93.89 Activity, other specified; Y92.89 Other specified places as the place of occurrence of the external cause; Y99.8 Other external cause status; Y90.9 Presence of alcohol in blood, level not specified

== ENCOUNTER 2024-10-10 20:43 | Emergency (ER) | payer OTHER ==
[~2024-10-10] VITALS: Ht 193 cm; Wt 108.9 kg
[2024-10-10 21:41] VITALS: BP 160/101; TEMP 98.6
[2024-10-10] MEDS ORDERED: ONDA4TAB5 PO (21:47)
[2024-10-10] MEDS: ONDANSETRON 4 MG TAB.RAPDIS SL ONE (21:52)
[2024-10-10] MEDS ORDERED: ONDANSETRON 4 MG TAB.RAPDIS ONE (21:52)
[2024-10-10 21:55] VITALS: O2SAT 98
== END 2024-10-10 21:57 | disposition home or self-care (01) ==
LOC: EDUNIT# 20:43 → ER 20:51
DX: F10.10 Alcohol abuse, uncomplicated (principal); R11.2 Nausea with vomiting, unspecified; I10 Essential (primary) hypertension; Z79.899 Other long term (current) drug therapy
CPT/HCPCS: 99283; Q0162